=== PATIENT | female | born 1970 | race African-American/Black ===

== ENCOUNTER 2022-12-29 22:45 | Emergency (ER) | payer MEDICAID ==
[~2022-12-29] VITALS: Ht 167.6 cm; Wt 101.6 kg
[2022-12-29 22:55] VITALS: BP_SYST 140
[2022-12-30] MEDS ORDERED: ACETAMINOPHEN 500 MG TABLET PO ONE (03:00)
[2022-12-30] MEDS ORDERED: KETOROLAC TROMETHAMINE 30 MG VIAL IM ONE (03:00)
[2022-12-30 05:43] VITALS: BP_SYST 126
== END 2022-12-30 05:41 | disposition home or self-care (01) ==
LOC: SED 22:45
DX: S09.90XA Unspecified injury of head, initial encounter (principal); R11.0 Nausea; Z79.899 Other long term (current) drug therapy; W01.0XXA Fall on same level from slipping, tripping and stumbling without subsequent striking against object, initial encounter; Y93.89 Activity, other specified; Y92.89 Other specified places as the place of occurrence of the external cause; Y99.8 Other external cause status
CPT/HCPCS: 99285; 70450; 72125; 76376; 96372; J1885